=== PATIENT | male | born 1965 | race Caucasian/White ===

== ENCOUNTER 2020-09-05 06:04 | Outpatient (REF) | payer OTHER, SELFPAY ==
[2020-09-05 11:34] LABS: Alanine Aminotransferase 18 U/L (0-40); Albumin Level 4.7 g/dL (3.5-5.0); Alkaline Phosphatase 67 U/L (39-117); Anion Gap 15 (12-20); Aspartate Amino Transferase 14 U/L (5-37); Bilirubin Total 0.6 mg/dL (0.0-1.0); Blood Urea Nitrogen 25 mg/dL (9-16); Calcium 9.3 mg/dL (8.4-10.2); Carbon Dioxide 26 mmol/L (22-29); Chloride 99 mmol/L (96-108); Estimated Glomerular Filt Rate > 60; Glucose Random 130 mg/dL (60-115); Potassium 4.5 mmol/l (3.3-5.1); Sodium 135 mmol/L (135-145); Total Protein 7.8 g/dL (6.5-8.0)
[2020-09-05 12:10] LABS: Estimated Average Glucose 200 mg/dL; Hemoglobin A1c % 8.6 %
[2020-09-05 13:43] LABS: Vitamin D 25-OH Total 20.6 ng/mL (>30)
== END 2020-09-05 06:05 | disposition home or self-care (01) ==
LOC: HO.HMGCLDS 06:04
PROVIDERS: PCP Internal Medicine; Visit Provider Internal Medicine
DX: E11.65 Type 2 diabetes mellitus with hyperglycemia (principal); E78.5 Hyperlipidemia, unspecified; I10 Essential (primary) hypertension; E55.9 Vitamin D deficiency, unspecified; E66.09 Other obesity due to excess calories; Z68.32 Body mass index [BMI] 32.0-32.9, adult
CPT/HCPCS: 80053; 82306; 83036

== ENCOUNTER → 2020-09-17 12:34 | Outpatient (BNVA) | payer OTHER, SELFPAY | PROVIDERS: PCP Internal Medicine; Visit Provider Internal Medicine | DX: Z76.89 Persons encountering health services in other specified circumstances (principal) ==

== ENCOUNTER 2020-09-24 12:56 | Outpatient (REF) | payer OTHER, SELFPAY ==
--- NOTE | 2020-09-24 12:58 | US_ITS ---
EXAMINATION: US THYROID CLINICAL INFORMATION: Goiter. COMPARISON: None TECHNIQUE: Linear transducer martinez-scale and color Doppler examination with attention to the region of the thyroid. FINDINGS: SIZE: Measurements of the thyroid lobes and nodules are given in sagittal, anteroposterior and transverse dimensions respectively. Right Thyroid Lobe: 5.2 x 1.6 x 1.4 cm, volume 6.1 mL. Parenchyma: The gland echotexture is normal. Thyroid vascularity is normal. Left Thyroid Lobe: 4.7 x 1.2 x 1.3 cm, volume 3.7 mL. Parenchyma: The gland echotexture is normal. Thyroid vascularity is normal. Isthmus: cm in maximum AP dimension. RIGHT THYROID LOBE: No nodules. ISTHMUS: No nodules. LEFT THYROID LOBE: There is 1 nodule. There is a 0.5 x 0.4 x 0.5 cm isoechoic nodule in the midpole. This has smooth margin with hypoechoic rind, no calcification and minimal peripheral flow. NODES: No lymphadenopathy is seen in the tissue surrounding the thyroid gland. Palpable abnormality in the left lateral neck corresponds to a small cyst just deep to the skin. This measures 0.6 x 0.2 x 1 cm and has a slightly thickened wall and no internal echoes. US/US thyroid IMPRESSION: Small left thyroid nodule. Otherwise unremarkable thyroid gland. Palpable abnormality in the left lateral neck corresponds to a small cyst just deep to the skin.
== END 2020-09-24 12:57 | disposition home or self-care (01) ==
LOC: HO.HMGCX 12:56
PROVIDERS: PCP Internal Medicine; Visit Provider Internal Medicine
DX: E04.9 Nontoxic goiter, unspecified (principal)
CPT/HCPCS: 76536

== ENCOUNTER → 2020-10-10 13:26 | Outpatient (BNVA) | payer OTHER, SELFPAY | PROVIDERS: PCP Internal Medicine; Referring Provider Internal Medicine; Visit Provider Internal Medicine | DX: Z76.89 Persons encountering health services in other specified circumstances (principal) ==

== ENCOUNTER 2021-01-18 12:16 | Outpatient (REF) | payer OTHER, SELFPAY ==
[2021-01-18 14:25] LABS: Creatinine Urine 69.75 mg/dL; Microalbum/Creatinine Ratio Ur 18.6 ug/mg cr
[2021-01-22 14:26] LABS: Testosterone, Total 315 ng/dL (250-1100)
== END 2021-01-18 12:17 | disposition home or self-care (01) ==
LOC: HO.HMGCLDS 12:16
PROVIDERS: Urology; PCP Internal Medicine; Visit Provider Internal Medicine
DX: E11.65 Type 2 diabetes mellitus with hyperglycemia (principal); N52.1 Erectile dysfunction due to diseases classified elsewhere
CPT/HCPCS: 36415; 82043; 84403

== ENCOUNTER 2021-01-28 14:00 | Outpatient (RCR) | payer OTHER, SELFPAY ==
--- NOTE | 2020-12-21 18:14 | MHC.PT.EP ---
[facility] [place] Office [place] Office [place] Office [address] [place] [address] [phone] F: [phone] F: [phone] F: [phone] F: [phone] Physical Therapy Plan of Care Date of Evaluation: 12/21/20 Date of Surgery: Diagnosis: Sprain of ligaments of lumbar spine. 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 Pt is deemed an appropriate candidate to receive skilled PT in order to address his physical limitations to improve his functional ability. Frequency and Duration: The patient will be seen 2 x / wk x 5 wks. Short Term Goals: In 1 week: initiate HEP. In 3 weeks: improve baseline pain to < 6/10 with activity; initial: 10/10 Head Charger Goals: In 5 weeks: improve core strength to > good (-); initial: fair. In 5 weeks: symmetrical painless trunk rotation achieved. In 5 weeks: Pt will be able to lift and carry objects of weight with managed Sx. Treatment Plan: Modalities to reduce pain, spasms and effusion. Manual therapy to restore motion and function. Therapeutic exercise to improve strength and flexibility. Neuromuscular re-education for posture and balance. Therapeutic activities to return to functional activities of daily living. Electronically signed by: Gil Ruiz PT. Please sign and return to therapist. Thank you for your referral.
--- NOTE | 2021-01-28 17:10 | MHC.PT.DC ---
[facility] [place] Office [place] [facility] [place] Office [address] [place] [address] [phone] F: [phone] F: [phone] F: [phone] F: [phone] Physical Therapy Discharge Report Diagnosis: Sprain of ligaments of lumbar spine. Date of Surgery: Date of Evaluation: 12/21/20 Date of Discharge: 01/28/21 Treatments to Date: 8 Cancellations to Date: 0 No Shows to Date: 0 Discharge Status: Improved Function Independent with HEP Discharge Summary: Ok has been an active and motivated participant in his therapy having met most of his therapeutic goals, is I with his home program, improved of his pain and function, and request DC today; PT in agreement. Thomas improved from 42% subjective disability, to 10%. Pt reports still limited of lifting objects of weight from the ground though is motivated to continue his home program and will consider a back brace for difficult times of his work day. Electronically signed by: Gil Ruiz PT Please sign and return to therapist. Thank you for your referral.
== END 2021-01-28 17:13 | disposition home or self-care (01) ==
LOC: HO.PTCHIC 14:00
PROVIDERS: PCP Internal Medicine; Visit Provider Nurse Practitioner Family
DX: S33.5XXD Sprain of ligaments of lumbar spine, subsequent encounter (principal)
CPT/HCPCS: 97014; 97110; 97162; 97530

== ENCOUNTER → 2021-03-07 11:27 | Outpatient (BNVA) | payer OTHER, SELFPAY | PROVIDERS: PCP Internal Medicine; Visit Provider Internal Medicine ==

== ENCOUNTER 2021-03-09 07:02 | Outpatient (REF) | payer OTHER, SELFPAY ==
[2021-03-09 07:39] LABS: Estimated Average Glucose 171 mg/dL; Hemoglobin A1c % 7.6 %
[2021-03-09 07:57] LABS: Alanine Aminotransferase 22 U/L (0-40); Albumin Level 4.8 g/dL (3.5-5.0); Alkaline Phosphatase 77 U/L (39-117); Anion Gap 12 (12-20); Aspartate Amino Transferase 14 U/L (5-37); Bilirubin Total 0.7 mg/dL (0.0-1.0); Blood Urea Nitrogen 28 mg/dL (9-16); Calcium 9.9 mg/dL (8.4-10.2); Carbon Dioxide 27 mmol/L (22-29); Chloride 102 mmol/L (96-108); Cholesterol 143 mg/dL; Estimated Glomerular Filt Rate > 60; Glucose Random 161 mg/dL (60-115); HDL Cholesterol 41 mg/dL; LDL Cholesterol Calculated 83 mg/dl; Potassium 4.7 mmol/L (3.3-5.1); Sodium 136 mmol/L (135-145); Total Protein 8.2 g/dL (6.5-8.0); Triglycerides 99 mg/dL
[2021-03-09 08:21] LABS: Vitamin D 25-OH Total 27.2 ng/mL (>30)
[2021-03-09 08:33] LABS: Creatinine Urine 61.16 mg/dL
[2021-03-11 10:41] LABS: LDL Cholesterol Direct 75 mg/dL (<100)
[2021-03-11 17:37] LABS: Sex Hormone Binding Globulin 34 nmol/L (22-77)
[2021-03-13 18:12] LABS: Testosterone, Total 224 ng/dL (250-1100)
== END 2021-03-09 07:03 | disposition home or self-care (01) ==
LOC: HO.LAB 07:02
PROVIDERS: Absent Provider Urology; PCP Internal Medicine; Visit Provider Internal Medicine
DX: E29.1 Testicular hypofunction (principal); E11.65 Type 2 diabetes mellitus with hyperglycemia; E55.9 Vitamin D deficiency, unspecified; Z12.5 Encounter for screening for malignant neoplasm of prostate
CPT/HCPCS: 36415; 80053; 80061; 82306; 83036; 83721; 84153; 84270; 84403

== ENCOUNTER 2021-07-11 06:02 | Outpatient (REF) | payer OTHER, SELFPAY ==
[2021-07-11 11:15] LABS: MANUAL DIFF FLAG NO
[2021-07-11 11:25] LABS: Basophils Absolute Auto 0.1 X10*3/uL (0.0-0.2); Basophils Percent Auto 0.7 % (0-2); Eosinophils Absolute Auto 0.2 X10*3/uL (0.0-0.4); Eosinophils Percent Auto 2.3 % (0-4); Hematocrit 41.6 % (42-52); Hemoglobin 13.3 g/dl (14.0-18.0); Imm Gran Abs Auto 0.04 X10*3/uL (0.00-0.03); Imm Gran Pct Auto 0.5 % (0.0-0.4); Lymphocytes Absolute Auto 2.3 X10*3/uL (1.2-4.9); Lymphocytes Percent Auto 27.9 % (20-40); Mean Corpuscular Hemoglobin 27.6 pg (27.0-33.0); Mean Corpuscular Volume 86.3 fL (80-98); Mean Platelet Volume 9.7 fL (9.4-12.4); Monocytes Absolute Auto 0.6 X10*3/uL (0.1-1.2); Neutrophils Percent Auto 61.6 % (45-73); Platelet Count 331 X10*3/uL (160-400); Red Blood Count 4.82 X10*6/uL (4.60-5.80); Red Cell Distribution Width 12.7 % (11.0-16.0); White Blood Count 8.2 X10*3/uL (4.8-10.8)
[2021-07-16 15:36] LABS: Testosterone, Total 494 ng/dL (250-1100)
== END 2021-07-11 06:03 | disposition home or self-care (01) ==
LOC: HO.HMGCLDS 06:02
PROVIDERS: PCP Internal Medicine; Visit Provider Urology
DX: E29.1 Testicular hypofunction (principal)
CPT/HCPCS: 36415; 84153; 84403; 85025

== ENCOUNTER 2021-10-23 05:59 | Outpatient (REF) | payer OTHER, SELFPAY ==
[2021-10-23 11:25] LABS: MANUAL DIFF FLAG NO
[2021-10-23 11:28] LABS: Basophils Absolute Auto 0.1 X10*3/uL (0.0-0.2); Basophils Percent Auto 0.7 % (0-2); Eosinophils Absolute Auto 0.2 X10*3/uL (0.0-0.4); Eosinophils Percent Auto 2.7 % (0-4); Hemoglobin 13.3 g/dl (14.0-18.0); Imm Gran Abs Auto 0.04 X10*3/uL (0.00-0.03); Imm Gran Pct Auto 0.5 % (0.0-0.4); Lymphocytes Absolute Auto 2.2 X10*3/uL (1.2-4.9); Lymphocytes Percent Auto 28.6 % (20-40); Mean Corpuscular HGB Conc 31.7 g/dl (31.0-36.0); Mean Corpuscular Hemoglobin 27.7 pg (27.0-33.0); Mean Corpuscular Volume 87.5 fL (80.0-98.0); Mean Platelet Volume 9.5 fL (9.4-12.4); Monocytes Absolute Auto 0.5 X10*3/uL (0.1-1.2); Monocytes Percent Auto 7.1 % (2-11); Neutrophils Absolute Auto 4.6 x10*3/uL (2.0-8.3); Neutrophils Percent Auto 60.4 % (45-73); Platelet Count 309 X10*3/uL (160-400); Red Cell Distribution Width 13.3 % (11.0-16.0); White Blood Count 7.7 X10*3/uL (4.8-10.8)
[2021-10-23 11:58] LABS: Alanine Aminotransferase 21 U/L (0-40); Albumin Level 4.6 g/dL (3.5-5.0); Alkaline Phosphatase 69 U/L (39-117); Anion Gap 12 (12-20); Aspartate Amino Transferase 15 U/L (5-37); Bilirubin Total 0.5 mg/dL (0.0-1.0); Blood Urea Nitrogen 30 mg/dL (9-16); Calcium 9.8 mg/dL (8.4-10.2); Carbon Dioxide 25 mmol/L (22-29); Chloride 105 mmol/L (96-108); Estimated Glomerular Filt Rate > 60; Glucose Random 125 mg/dL (60-115); Potassium 4.6 mmol/L (3.3-5.1); Sodium 137 mmol/L (135-145); Total Protein 7.8 g/dL (6.5-8.0)
[2021-10-23 12:07] LABS: Prostate Specific Antigen 3.35 ng/mL (<0.05-4.0)
[2021-10-28 06:32] LABS: Testosterone, Total 499 ng/dL (250-1100)
== END 2021-10-23 06:00 | disposition home or self-care (01) ==
LOC: HO.HMGCLDS 05:59
PROVIDERS: Absent Provider Internal Medicine; PCP Internal Medicine; Visit Provider Urology
DX: Z12.5 Encounter for screening for malignant neoplasm of prostate (principal); E29.1 Testicular hypofunction; I10 Essential (primary) hypertension
CPT/HCPCS: 36415; 80053; 84153; 84403; 85025

== ENCOUNTER 2022-06-25 06:27 | Outpatient (REF) | payer OTHER, SELFPAY ==
[2022-06-25 11:05] LABS: MANUAL DIFF FLAG NO
[2022-06-25 11:18] LABS: Basophils Absolute Auto 0.1 X10*3/uL (0.0-0.2); Basophils Percent Auto 1.1 % (0-2); Eosinophils Absolute Auto 0.1 X10*3/uL (0.0-0.4); Eosinophils Percent Auto 1.6 % (0-4); Hematocrit 43.5 % (42.0-52.0); Hemoglobin 14.2 g/dl (14.0-18.0); Imm Gran Abs Auto 0.05 X10*3/uL (0.00-0.03); Imm Gran Pct Auto 0.6 % (0.0-0.4); Lymphocytes Absolute Auto 2.1 X10*3/uL (1.2-4.9); Lymphocytes Percent Auto 24.8 % (20-40); Mean Corpuscular HGB Conc 32.6 g/dl (31.0-36.0); Mean Corpuscular Hemoglobin 27.2 pg (27.0-33.0); Mean Corpuscular Volume 83.3 fL (80.0-98.0); Mean Platelet Volume 10.1 fL (9.4-12.4); Monocytes Absolute Auto 0.6 X10*3/uL (0.1-1.2); Monocytes Percent Auto 6.8 % (2-11); Neutrophils Absolute Auto 5.6 x10*3/uL (2.0-8.3); Neutrophils Percent Auto 65.1 % (45-73); Platelet Count 353 X10*3/uL (160-400); Red Blood Count 5.22 X10*6/uL (4.60-5.80); Red Cell Distribution Width 12.3 % (11.0-16.0); White Blood Count 8.6 X10*3/uL (4.8-10.8)
[2022-06-25 12:33] LABS: Prostate Specific Antigen 7.13 ng/mL (<0.05-4.0)
[2022-07-03 14:31] LABS: Testosterone, Free 35.6 pg/mL (35.0-155.0); Testosterone, Total 172 ng/dL (250-1100)
== END 2022-06-25 06:28 | disposition home or self-care (01) ==
LOC: HO.HMGCLDS 06:27
PROVIDERS: Visit Provider Nurse Practitioner Family
DX: Z12.5 Encounter for screening for malignant neoplasm of prostate (principal); R29.1 Meningismus; N40.1 Benign prostatic hyperplasia with lower urinary tract symptoms
CPT/HCPCS: 36415; 84153; 84402; 84403; 85025

== ENCOUNTER 2022-07-02 06:02 | Outpatient (REF) | payer OTHER, SELFPAY ==
[2022-07-08 14:46] LABS: Testosterone, Free 74.1 pg/mL (35.0-155.0); Testosterone, Total 334 ng/dL (250-1100)
== END 2022-07-02 06:03 | disposition home or self-care (01) ==
LOC: HO.HMGCLDS 06:02
PROVIDERS: Nurse Practitioner Family; PCP Internal Medicine; Visit Provider Internal Medicine
DX: E29.1 Testicular hypofunction (principal)
CPT/HCPCS: 36415; 84402; 84403